=== PATIENT | female | born 1985 | race Caucasian/White ===

== ENCOUNTER 2022-04-20 09:58 | Outpatient (CLI) | payer OTHER, SELFPAY ==
[2022-04-20 10:17] LABS: Hematocrit 40.8 % (33.0-51.0); Hemoglobin* 13.8 gm/dL (12.0-16.0); Mean Corpuscular HGB Conc 34 gm/dL (32-36); Mean Corpuscular Hemoglobin 31 pg (26-34); Mean Corpuscular Volume 91 fL (80-100); Platelet Count* 251 K/uL (140-440); Red Blood Count 4.47 m/uL (4.00-5.20)
[2022-04-20 10:20] LABS: Slide Review Reflex No
[2022-04-20 13:33] LABS: TSH With Reflex to FT4* 0.989 uIU/mL (0.270-4.200)
[2022-04-20 13:38] LABS: Ferritin* 24.1 ng/mL (6.24-137.0)
[2022-04-20 13:52] LABS: Vitamin B12* 355 pg/mL (243-894)
== END 2022-04-20 09:59 | disposition home or self-care (01) ==
PROVIDERS: PCP Physician Assistant Medical; Visit Provider Physician Assistant Medical
DX: R20.0 Anesthesia of skin (principal); R20.2 Paresthesia of skin
CPT/HCPCS: 82607; 82728; 84443; 85027

== ENCOUNTER 2022-08-29 15:08 | Emergency (ER) | payer OTHER, SELFPAY ==
[2022-08-29 15:14] VITALS: BP 149/91; PULSE 88; RESP 22; TEMP 35.8; O2SAT 100; BMI 26.3
--- NOTE | 2022-08-29 15:40 | CRLHL7_ITS ---
For Patients: As a result of the Century Cures Act, medical imaging exams and procedure reports are released immediately into your electronic medical record. You may view this report before your referring provider. If you have questions, please contact your health care provider. INDICATION: Left flank pain COMPARISON: October 23, 2013 TECHNIQUE: CT examination of the abdomen and pelvis was performed without intravenous contrast. Thin section axial images were obtained from the lung bases through the pubic symphysis. Oral contrast was not administered. Please note that all CT scans at this facility use dose modulation, iterative reconstruction, and/or weight-based dosing when appropriate to reduce radiation dose to as low as reasonably achievable. FINDINGS: LUNG BASES: The lung bases as visualized appear normal.The heart size is normal at the lung bases. LIVER/BILIARY SYSTEM:The liver is normal in size and configuration given the lack of intravenous contrast. There is no visible focal mass and there is no intra- or extra hepatic biliary ductal dilatation.The gall bladder appears normal. ADRENALS: Normal non-contrast appearance KIDNEYS, URETERS and BLADDER:Vague renal papillary hyperdensities probably related to medullary sponge kidney. Intrarenal calculi bilaterally. Left hydronephrosis and left hydroureter which is due to a 5.5 millimeter calculus in the distal left ureter 6 centimeters from the left ureterovesical junction. SPLEEN:Normal non-contrast appearance. PANCREAS: Normal non-contrast appearance. RETROPERITONEUM and MESENTERY: There is no mass, adenopathy or aortic aneurysm. GASTROINTESTINAL SYSTEM: There is no evidence of diverticulitis, colitis, mechanical obstruction, or appendicitis. The small bowel as visualized appears normal. PELVIS: No mass, adenopathy or free fluid. OSSEOUS STRUCTURES and ABDOMINAL WALL: There is an age-appropriate appearance of the osseous structures.No significant abdominal wall defect. OTHER: No free fluid or free air. IMPRESSION: Left-sided obstructive uropathy due to a 5.5 millimeter calcified calculus in the distal left ureter about 6 centimeters from the left ureterovesical junction. Intrarenal calculi bilaterally. Findings of medullary sponge kidney. Please note that all CT scans at this facility use dose modulation, iterative reconstruction, and/or weight-based dosing when appropriate to reduce radiation dose to as low as reasonably achievable. Dictated by Bear Early MD @ 08/29/2022 4:43:07 PM (Electronically Signed)
--- NOTE | 2022-08-29 15:41 | ED.GENADULT ---
HPI - General Adult General Chief complaint: Flank Pain Stated complaint: Abdominal and Lower Back Pain Time Seen by Provider: 08/29/22 15:10 History of Present Illness HPI narrative: This 36-year-old female comes in with left flank and abdominal pain over the past day or so. She states that she has a history of kidney stone and feels like this is another occurrence. She does not report any nausea or vomiting. She is more and more uncomfortable over time and is trying to get into a position that is more comfortable. She does not report any dysuria or fevers. She is otherwise in good health. Related Data Home Medications Medication Instructions Recorded Confirmed cephalexin 250 mg capsule 250 mg PO Q12H PRN 02/07/22 08/29/22 norgestimate-ethinyl estradiol 1 tab PO QDAY 02/07/22 08/29/22 0.18 mg/0.215mg/0.25mg-35 mcg(28)tablet Previous Rx's Medication Instructions Recorded hydrocodone 5 mg-acetaminophen 325 1 tab PO Q4-6H PRN pain #20 tabs 08/29/22 mg tablet ketorolac 10 mg tablet 10 mg PO Q8H 5 days #15 tabs 08/29/22 ondansetron HCl 4 mg tablet 4 mg PO Q6H #20 tabs 08/29/22 Allergies Allergy/AdvReac Type Severity Reaction Status Date / Time No Known Allergies Allergy Unknown Verified 08/10/22 09:53 Review of Systems Status of ROS: Reports: 10 or more systems reviewed and unremarkable except as noted in History and below Narrative: Constitutional: No fevers, no weight gain or loss. Eyes: No discharge. No vision changes. HENT: No congestion, no sore throat, no ear pain. Cardiovascular: No chest pain, no palpitations. Respiratory: No shortness of breath, no wheezes, no cough. Gastrointestinal: No vomiting, no diarrhea. Left-sided abdominal pain radiating into the back. Genitourinary: No dysuria, no hematuria. Musculoskeletal: Normal range of motion. Skin: No rashes, no pruritis. Neurological: No dizziness, weakness, sensory change, speech change. Endo/Heme/Allergies: No bruising or bleeding. No polydipsia. Pysch: no suicidality, no anxiety, no insomnia. All other systems reviewed and are negative. PFSH PFSH Social History Smoking Status: Never smoker Do you use any of these nicotine containing products: None Second hand tobacco smoke exposure: No How often do you have a drink containing alcohol: 2-3 times a week How many standard drinks containing alcohol do you have on a typical day: 1 or 2 AUDIT-C Alcohol total score: 3 Non-prescribed substance use: denies use Exam Narrative: Exam Narrative: Constitutional: Well-developed, well-nourished. She is in significant distress. HEENT: Normocephalic, atraumatic. Neck: Normal range of motion. Nontender. Supple. Heart: Regular. No murmurs. Normal rate. Intact distal pulses. Lungs: Clear to auscultation. No chest discomfort. No wheezes, rhonchi, or rales. Abdomen: Normal bowel sounds. Diffuse pain in the left abdomen radiating into the left back. No rebound tenderness. Genitalia: Deferred. Back: No midline tenderness. Normal range of motion. Extremities: Normal range of motion. No injury. Skin: Intact. No rash. Warm. No erythema or pallor. Neurologic: No altered sensation. No weakness. Alert and oriented. Psychiatric: No suicidality. No anxiety or depression. No insomnia. Nursing notes and vitals signs are reviewed. Const: Vital Signs, click to edit/add: Vital Signs - 24 hr 08/29/22 15:14 Temperature 96.5 F L Pulse Rate [Pulse Oximeter] 88 Respiratory Rate 22 Blood Pressure [Ri ght Upper Arm] 149/91 H Pulse Oximetry 100 Course Vital Signs Vital signs: Initial Vital Signs Temperature 96.5 F L 08/29/22 15:14 Temperature Source Temporal Artery Scan 08/29/22 15:14 Pulse Rate 88 08/29/22 15:14 Pulse Rhythm 08/29/22 15:14 Respiratory Rate 22 08/29/22 15:14 Blood Pressure 149/91 H 08/29/22 15:14 Blood Pressure Mean 110 08/29/22 15:14 Blood Pressure Position Sitting 08/29/22 15:14 Pulse Oximetry 100 08/29/22 15:14 Vital Signs Temperature 96.5 F L 08/29/22 15:14 Pulse Rate 88 08/29/22 15:14 Respiratory Rate 22 08/29/22 15:14 Blood Pressure 149/91 H 08/29/22 15:14 Pulse Oximetry 100 08/29/22 15:14 Temperature 96.5 F L 08/29/22 15:14 Pulse Rate 88 08/29/22 15:14 Respiratory Rate 22 08/29/22 15:14 Blood Pressure 149/91 H 08/29/22 15:14 Pulse Oximetry 100 08/29/22 15:14 Medical Decision Making MDM Narrative Medical decision making narrative: This patient comes in with severe left-sided abdominal pain and has a history of kidney stones. An IV was established where she received doses of Toradol 30 mg, Dilaudid 0.5 mg, and Zofran 4 mg. This brought great relief to her symptoms. CT imaging of the abdomen and pelvis does show evidence of a 5.5 mm stone in the distal ureter about 6 cm from the bladder. These results are communicated with the patient and current knowledge regarding management of stones was also relayed to her. Her urinalysis shows no sign of infection. She is able to return home and received prescriptions for Toradol, [place], and Zofran. I did describe options for ongoing management of her symptoms are not improving or worsening. Lab Data Labs: Lab Results 08/29/22 Range/Units 15:40 Urine Color Yellow (Yellow) Urine Appearance Clear (Clear) Urine pH 8.5 (5.0-8.5) Ur Specific [place] 1.020 (1.000-1.030) Urine Protein 1+ A (Negative) Urine Glucose (UA) Negative (Negative) Urine Ketones 1+ A (Negative) Urine Blood 3+ A (Negative) Urine Nitrite Negative (Negative) Urine Bilirubin Negative (Negative) Urine Urobilinogen 0.2 (0.2-1.0) Ur Leukocyte Esterase Trace A (Negative) Urine RBC >100 A (0-2) Urine WBC 10-25 A (0-5) Ur Squamous Epith Cells Moderate A (None-Few) Amorphous Sediment Many A (None) Urine Bacteria Moderate A (None) Imaging Data CT scan - abdomen: Radiologist's impression: Left-sided obstructive uropathy due to a 5.5 millimeter calcified calculus in the distal left ureter about 6 centimeters from the left ureterovesical junction. Intrarenal calculi bilaterally. Findings of medullary sponge kidney. Discharge Plan Discharge Clinical Impression: Calculus, ureteral Patient Disposition: Home w/ Parent or Adult Condition: Improved Additional Instructions: Take medication as needed and indicated. Follow up with MD or return if worsening symptoms occur. Prescriptions: New hydrocodone-acetaminophen 5-325 mg tablet 1 tab PO Q4-6H PRN (Reason: pain) Qty: 20 0RF ondansetron HCl 4 mg tablet 4 mg PO Q6H Qty: 20 0RF ketorolac 10 mg tablet 10 mg PO Q8H 5 Days Qty: 15 0RF No Action norgestimate-ethinyl estradiol 0.18/0.215/0.25 mg-35 mcg (28) tablet 1 tab PO QDAY cephalexin 250 mg capsule 250 mg PO Q12H PRN Follow Up/Referrals: Terri Pinzon PA-C [Primary Care Provider] - Stand Alone [facility]: [facility] Info Instructions
[2022-08-29] MEDS: ONDANSETRON 2 MG/ML inj 4 MG IVP (15:48)
[2022-08-29] MEDS: HYDROmorphone 0.5 mg/0.5 ml inj IVP (15:48)
[2022-08-29] MEDS: KETOROLAC 30 MG/ML inj IVP (15:48)
[2022-08-29 17:08] LABS: Appearance Urine Clear (Clear); Bilirubin Urine Negative (Negative); Blood Urine 3+ (Negative); Color Urine Yellow (Yellow); Glucose Urine Negative (Negative); Ketones Urine 1+ (Negative); Leukocyte Esterase Urine Trace (Negative); Nitrite Urine Negative (Negative); Protein Urine 1+ (Negative); Urobilinogen Urine 0.2 (0.2-1.0); pH Urine 8.5 (5.0-8.5)
[2022-08-29 17:27] LABS: Amorphous Sediment Urine Many; Bacteria Urine Moderate; RBC Urine >100 (0-2); Squamous Epithelial Cell Urine Moderate (None-Few)
[2022-08-29 17:46] VITALS: BP 128/73; PULSE 75
== END 2022-08-29 17:49 | disposition home or self-care (01) ==
PROVIDERS: Emergency Provider Emergency Medicine Emergency Medical Services; PCP Physician Assistant Medical
DX: N20.1 Calculus of ureter (principal)
CPT/HCPCS: 74176; 81001; 87086; 96374; 96375; 99284; J1170; J1885; J2405

== ENCOUNTER 2024-08-12 05:38 | Emergency (ER) | payer OTHER, SELFPAY ==
--- OUTSIDE RECORDS SUMMARY | 2024-08-12 05:42 | XMS_ITS | Referral Summary ---
Author Organization [facility] Address [address] [place] [address] Care Team Providers Care Medical Art Therapist Name Role Phone No Ref-Primary, Physician Primary Care Provider Allergies No known active allergies Medications Sulfamethoxazol e-Trimethoprim (BACTRIM PO) Take 1 tablet by mouth as needed Active HYDROcodone-sarah taminophen (NORCO) 5-325 MG tablet Take 1 tablet by mouth every 4 hours as needed for severe pain (7-10) Active ondansetron (ZOFRAN) 4 MG tablet Take 4 mg by mouth every 6 hours as needed for nausea Active ketorolac (TORADOL) 10 MG tablet Take 10 mg by mouth every 8 hours as needed for moderate pain (4-6) Active norgestim-eth estrad triphasic (ORTHO TRI-CYCLEN) 0.18/0.215/0.25 MG-35 MCG tablet Take 1 tablet by mouth daily Active Pediatric Multiple Vitamins (FLINTSTONES MULTIVITAMIN) CHEW Take 1 chew tab by mouth daily Active Social History Tobacco Use Types Packs/Day Years Used Date Smoking Tobacco: Never Smokeless Tobacco: Never Alcohol Use Standard Drinks/Week Comments Yes 0 (1 standard drink = 0.6 oz pur e alcohol) Adolescent Education Answer Date Record ed Getting School Help Needed Not on file 05/03 Comments No Sex and Gender Information Value Date Recorded Sex Assigned at Not on file Legal Sex Female 10:02 AM CDT Gender Identity Not on file Sexual Orientation Not on file Last Filed Vital Signs Vital Sign Reading Time Taken Comments Blood Pressure 112/80 09/03/2022 11:30 AM [employer] Pulse 104 09/03/2022 11:30 AM [employer] Temperature 37.3 C (99.2 F) 09/03/2022 11:30 AM [employer] Respiratory Rate 18 09/03/2022 11:30 AM [employer] Oxygen Saturation 98% 09/03/2022 11:30 AM [employer] Inhaled Oxygen Concentration - - Weight 71.8 kg (158 lb 4.8 oz) 08/31/2022 1:33 PM [employer] Height 163.8 cm (5' 4.5) 06/04/2014 1:03 PM CDT Body Mass Index 26.75 06/04/2014 1:03 PM CDT Plan of Treatment Not on file Medical Devices Implanted Type Area Mohs Surgeon Device Identifier Shelf Expiration Date Model / Serial / Lot Stent Ureteral Polaris Ultra [id number] - [id number] Implanted:Qty: 1 on 08/31/2022 by Blil Vance MD at [facility] Stent Left: Ureter [employer] 04/26/2025 [id number] / / [id number] Explanted Type Area Mohs Surgeon Device Identifier Shelf Expiration Date Model / Serial / Lot Stent Ureteral Polaris Ultra [id number] - [id number] Explanted:Qty: 1 on 08/31/2022 by Bill Vance MD at [facility] Stent Left: Ureter [employer] 02/18/2025 [id number] / / [id number] Procedures Procedure Name Priority Date/Time Associated Diagnosis Comments BASIC METABOLIC PANEL Routine 09/03/2022 6:40 AM [employer] from Last 3 Months or Most Recently Relevant to Health Maintenance Results * (ABNORMAL) Basic metabolic panel (09/03/2022 6:40 AM [employer] LEADER) Sodium 141 136 - 145 mmol/L 09/03/2022 7:37 AM [facility] Potassium 4.1 3.4 - 5.3 mmol/L 09/03/2022 7:37 AM [employer] [facility] Chloride 109(H) 98 - 107 mmol/L 09/03/2022 7:37 AM [facility] Carbon Dioxide (CO2) 23 22 - 29 mmol/L 09/03/2022 7:37 AM [employer] [facility] Anion Gap 9 7 - 15 mmol/L 09/03/2022 7:37 AM [facility] Urea Nitrogen 5.3(L) 6.0 - 20.0 mg/dL 09/03/2022 7:37 AM [facility] Creatinine 0.61 0.51 - 0.95 mg/dL 09/03/2022 7:37 AM [facility] [facility] [facility] Calcium 8.1(L) 8.6 - 10.0 mg/dL 09/03/2022 7:37 AM [facility] Glucose 84 70 - 99 mg/dL 09/03/2022 7:37 AM [employer] [facility] GFR Estimate >90 >60 mL/min/1.7 3m2 09/03/2022 7:37 AM [facility] Comment:Effective July 132020 eGFRcr in adults is calculated using the 2020 CKD-EPI creatinine equation which includes age and gender (Ita et al., NEJM, DOI: 10.1056/NDJUzz7836607) Blood STRUCTURE OF RIGHT UPPER LIMB / Unknown Venipuncture / Unknown 09/03/2022 6:40 AM [employer] 09/03/2022 7:00 AM [employer] LE[employer]ER Gonzales Osman DO LAB - BLOOD ORDERABLES Zamzam azul Result LABORATORY [facility] [address] Lab (1st floor, no room number) [place] [address], [facility] [phone] from Last 3 Months or Most Recently Relevant to Health Maintenance Advance Directives For more information, please contact: [phone] * Full Code (Latest Code Status on File) Date Activated Date Inactivated Comments 09/02/2022 6:04 AM 09/03/2022 3:12 PM All basic an d advanced life-sustaining interventions are performed as appropriate Question Answer Comments Code status determined by: Discussion with farzanehe nt/ legal decision maker Care Teams Medical Art Therapist Relationship Specialty Start Date End Date No Ref-Primary, Physician PCP - General 09/02/22
--- OUTSIDE RECORDS SUMMARY | 2024-08-12 05:42 | XMS_ITS | Clinical Summary ---
Author Organization [employer] [facility] Address [place], [place] [address] Care Team Providers Care Operating Room Surgical Technician Name Role Phone [facility] Unavailable Unavailable Clinic, No Pcp Or Primary Care Provider Unavaila ble Allergies No known active allergies Medications cephalexin 250 mg capsuleIndication s:Recurrent UTI Take 1 Capsule (250 mg) by mouth one time if needed (Post intercourse to prevent UTI.). 40 Capsule 3 07/31/20 24 Active norgestimate-ethi nyl estradioL (ORTHO TRI-CYCLEN) 0.18/0.215/0.25 mg-35 mcg (28) tabletIndications :Encounter for surveillance of contraceptive pills Take 1 Tablet by mouth once daily. 84 Tablet 3 07/31/20 24 Active MULTIVIT WITH CALCIUM,IRON,MIN (WOMEN'S DAILY MULTIVITAMIN ORAL) Take 1 tablet by mouth once daily. 024 Discontin ued(*Danii ent states no longer taking) cephalexin (KEFLEX) 250 mg capsuleIndication s:Recurrent UTI Take 1 Capsule (250 mg) by mouth one time if needed (Post intercourse to prevent UTI.) for up to 1 dose. 40 Capsule 08/30/19 24 024 Discontin ued(Reord er (E-cancel not sent)) norgestimate-ethi nyl estradioL (ORTHO TRI-CYCLEN) 0.18/0.215/0.25 mg-35 mcg (28) tabletIndications :Encounter for surveillance of contraceptive pills TAKE 1 TABLET BY MOUTH EVERY DAY 84 Tablet 05/19/20 24 024 Discontin ued(Reord er (E-cancel not sent)) Active Problems Problem Noted Date Diagnosed Date Other hyperlipidemia 05/01/2024 Skin lesion of face 05/01/2024 Change in mole 05/01/2024 Dizziness 09/25/2012 Pre-syncope 09/25/2012 Irregular periods 09/25/2012 Orthostatic hypotension/intolerance 09/25/2012 Overview (10/23/2012): Had tilt table test 10/2012 after demonstrated orthostatic hypotension in office. No significant drop in pressure or elevation in HR with tilt table but did demonstrate orthostatic intolerance. Have recommended exercise/weight training, liberal sodium intake, warm rather than hot showers. Could also start Florinef in the future if these measures do not improve symptoms. Also could complete a blood volume study in the future if symptoms persist. Urinary tract infection, site not specified 11/10 Overview (04/09/2011): History of frequent urinary tract infection, with Negative workup. Bactrim post intercourse by urology recommendation ~ Mar 2011: ciprofloxacin. Pyelonephritis, unspecified 03/18/2006 Resolved Problems Problem Noted Date Diagnosed Date Resolved Date Influenza with other respira tory manifestations 03/18/2006 11/29/2007 SORE THROAT 06/27/2005 11/29/2007 CYSTITIS - ACUTE 06/27/2005 Encounters Date Type Department Care Team Description 07/31/2024 8:20 AM CUSTOMS AND BORDER PROTECTION OFFICER Office Visit [facility] [address] [facility] [place] [address] Fatmata Wagoner NP Physical (Non fasting ); Immunization/Injecti on 07/31/2024 Travel 07/06/2024 11:05 AM CUSTOMS AND BORDER PROTECTION OFFICER Telemedicine [facility] [address] [place] [phone] Bear Rivera MD Sinus Problem 07/06/2024 Travel 05/17/2024 Refill [facility] [address] [place] [address] Fatmata Wagoner NP Refill Request (Norgestimate-ethiny l Estradiol) from Last 3 Months Immunizations Name Administration Dates Next Due COVID-19 vaccine (WapiBio NTech 30mcg/0.3mL) PF, MDV 09/11/2020 Hepatitis A (Adult) 04/26/2008 Hepatitis B (Adult) 06/03/2008,04/26/2008 Hepatitis B (Peds) 03/23/2004,03/21/2001 INFLUENZA, IIV3 PF (AGE >= 6 MO) 07/31/2024 Influenza, IIV4 06/14/2023,,05/27/2020, 019,05/23/2018 MMR 04/02/2000 Td (Age >=7 Years) 04/02/2000 Tdap 06/10/2020,05/09/2018,04/26/2008 Varicella Vaccine 04/26/2008 Family History Medical History Relation Name Comments Hyperlipidemia Father Leukemia Maternal Grandfather 90s Diabetes Maternal Grandmother Meniere's disease Mother Heart attack Paternal Grandfather Young A ge Pulmonary embolism Paternal Grandmother Relation Name Status Comments Father Alive Half-Brother Alive Maternal Grandfather Maternal Grandmother Mother Alive Other 1 Other 2 Paternal Grandfather Paternal Grandmother Sister Alive Social History Tobacco Use Types Packs/Day Years Used Date Smoking Tobacco: Never Passive Smoke Exposure: Never Smokeless Tobacco: Never Tobacco Cessation:Counseling Given: Not Answered Alcohol Use Standard Drinks/Week Comments Yes 4 (1 standard drink = 0.6 oz pur e alcohol) every other weekend [facility] Utilities Answer Date Recorded Do you have trouble paying f or utilities (for example, heat, electricity, water, phone)? Yes 05/01/2024 PHQ-2 Answer Date Recorded PHQ-2 TOTAL SCORE 0 07/31/2024 Social Connections Answer Date Recorded Do you often feel lonely or isolated from those around you? 0 05/01/2024 Financial Resource Strain Answer Date R ecorded Difficulty of Paying Living Expenses 3 05/01/2024 Difficulty of Paying Living Expenses Not on file 05/01/2024 Food Insecurity Answer Date Recorded Do you worry your food will run out before you are able to buy more? 1 05/01/2024 Transportation Needs Answer Date Record ed Does lack of transportation keep you from medica l appointments? 1 05/01/2024 Does lack of transportation keep you from work, meetings or getting things that you need? 1 05/01/2024 Housing Stability Answer Date Recorded What is your housing situation today? 1 05/01/2024 Comments No Sex and Gender Information Value Date Recorded Sex Assigned at Not on file Legal Sex Female 5:26 AM CUSTOMS AND BORDER PROTECTION OFFICER Gender Identity Not on file Sexual Orientation Not on file Obstetrics History Last Filed Vital Signs Vital Sign Reading Time Taken Comments Blood Pressure 104/70 07/31/2024 8:24 AM CUSTOMS AND BORDER PROTECTION OFFICER Pulse 76 07/31/2024 8:24 AM CUSTOMS AND BORDER PROTECTION OFFICER Temperature 36.8 C (98.3 F) 12/13/2023 4:15 PM CDT Respiratory Rate 16 12/13/2023 4:15 PM CDT Oxygen Saturation 99% 12/13/2023 4:15 PM CDT Inhaled Oxygen Concentration - - Weight 75.3 kg (166 lb) 07/31/2024 8:24 AM CUSTOMS AND BORDER PROTECTION OFFICER Height 163.8 cm (5' 4.5) 07/31/2024 8:24 AM CUSTOMS AND BORDER PROTECTION OFFICER Body Mass Index 28.05 07/31/2024 8:24 AM CUSTOMS AND BORDER PROTECTION OFFICER Plan of Treatment Health Maintenance Due Date Last Done Comments COVID-19 vaccine series ( season) 2024 08/31/2021, 10/02/2020, 09/11/2020 BMI (ht and wt on same day) for age 18+ 07/31/2025 07/31/2024, 05/01/2024, 06/14/2023, Additional history exists Depression screening for age 12+ 07/31/2025 07/31/2024, 06/14/2023 Pap test for age 21-65 10/06/2025 , 10/06/2020, 05/10/2017, Additional history exists Tetanus booster 06/10/2030 06/10/2020, 04/13, 04/26/2008, Additional history exists HIV for age 15-65 Completed 12/16/2009 Tdap Completed 06/10/2020, 04/13, 04/26/2008 Hepatitis C screening for age 18-79 Completed 07/31/2024 Influenza for age 9-49 Completed , 06/14/2023, 05/31/2021, Additional history exists Pneumococcal series for age 6-49 Aged Out No longer eligible based on patient's age to complete this topic Procedures Procedure Name Priority Date/Time Associated Diagnosis Comments TSH WITH REFLEX Routine 07/31/2024 8:58 AM CUSTOMS AND BORDER PROTECTION OFFICER Thyroid disorder screen LIPID PANEL W REFLEX MEASURED LDL Routine 07/31/2024 8:58 AM CUSTOMS AND BORDER PROTECTION OFFICER Lipid screening HEMOGLOBIN A1C Routine 07/31/2024 8:58 AM CUSTOMS AND BORDER PROTECTION OFFICER Diabetes mellitus screening ANTI HCV Routine 07/31/2024 8:58 AM CUSTOMS AND BORDER PROTECTION OFFICER Encounter for hepatitis C screening test for low risk patient OVERNIGHT STOCKER THIN PREP PAP SCREEN IMAGED Routine 10/06/2020 2:00 PM CUSTOMS AND BORDER PROTECTION OFFICER ANTI HIV 1/2 Routine 12/16/2009 1:47 PM CDT Screen for STD (sexually transmitted disease) from Last 3 Months or Most Recently Relevant to Health Maintenance Results * HEMOGLOBIN A1C (07/31/2024 8:58 AM CUSTOMS AND BORDER PROTECTION OFFICER) HEMOGLOBIN A1C 5.1 <5.7 % of total Hgb [facility] Comment: For the purpose of screening for the presence of diabetes: <5.7% Consistent with the absence of diabetes 5.7-6.4% Consistent with increased risk for diabetes (prediabetes) > or =6.5% Consistent with diabetes This assay result is consistent with a decreased risk of diabetes. Currently, no consensus exists regarding use of hemoglobin A1c for diagnosis of diabetes in children. According to [place] Diabetes Association (ADA) guidelines, hemoglobin A1c <7.0% represents optimal control in non- diabetic patients. Different metrics may apply to specific patient populations. Standards of Medical Care in Diabetes(ADA). Blood BLOOD SPECIMEN / Unknown 07/31/2024 8:58 AM CUSTOMS AND BORDER PROTECTION OFFICER 07/31/2024 8:59 AM CUSTOMS AND BORDER PROTECTION OFFICER us Fatmata Wagoner NP CHEMISTRY Final Res ult [facility] [address] [place] [address], [facility] [address] [place] [phone] * TSH WITH REFLEX (07/31/2024 8:58 AM CUSTOMS AND BORDER PROTECTION OFFICER) TSH W/REFLEX TO FT4 1.21 mIU/L [facility] Comment: Reference Range > or = 20 Years 0.40-4.50 Ranges First trimester 0.26-2.66 Second trimester 0.55-2.73 Third trimester 0.43-2.91 Blood BLOOD SPECIMEN / Unknown 07/31/2024 8:58 AM CUSTOMS AND BORDER PROTECTION OFFICER 07/31/2024 8:59 AM CUSTOMS AND BORDER PROTECTION OFFICER us Fatmata Wagoner GRADUATE TEACHING ASSISTANT CHEMISTRY Final Res ult [employer] [address] [phone], [facility] [employer] [facility] [address] [place] [phone] * (ABNORMAL) LIPID PANEL W REFLEX MEASURED LDL (07/31/2024 8:58 AM CUSTOMS AND BORDER PROTECTION OFFICER) CHOLESTEROL, TOTAL 218(H) <200 mg/dL [facility] HDL CHOLESTEROL 77 > OR = 50 mg/dL [facility] TRIGLYCERIDES 115 <150 mg/dL [facility] LDL-CHOLESTEROL 118(H) mg/dL (calc) [facility] Comment: Reference range: <100 Desirable range <100 mg/dL for primary prevention; <70 mg/dL for patients with CHD or diabetic patients with > or = 2 CHD risk factors. LDL-C is now calculated using the Arnulfo calculation, which is a validated novel method providing better accuracy than the Friedewald equation in the estimation of LDL-C. Benji DANG et al. REECE. 2013;310(19): 5585-2114 (http://education.[employer]/faq/FPH742) CHOL/HDLC RATIO 2.8 <5.0 (calc) [employer] [facility] NON HDL CHOLESTEROL 141(H) <130 mg/dL (calc) [facility] Comment: For patients with diabetes plus 1 major ASCVD risk factor, treating to a non-HDL-C goal of <100 mg/dL (LDL-C of <70 mg/dL) is considered a therapeutic option. Blood BLOOD SPECIMEN / Unknown 07/31/2024 8:58 AM CUSTOMS AND BORDER PROTECTION OFFICER 07/31/2024 8:59 AM CUSTOMS AND BORDER PROTECTION OFFICER us Fatmata Wagoner GRADUATE TEACHING ASSISTANT CHEMISTRY Final Res ult Performing Organization Address [facility]/ZIP Co de Phone Number [employer] [address] [phone], [address] [phone] * ANTI HCV (07/31/2024 8:58 AM CUSTOMS AND BORDER PROTECTION OFFICER) HEPATITIS C ANTIBODY NON-REACTI VE NON-REACT DONNA [facility] Comment: HCV antibody was non-reactive. There is no laboratory evidence of HCV infection. In most cases, no further action is required. However, if recent HCV exposure is suspected, a test for HCV RNA (test code 95306) is suggested. For additional information please refer to http://education.[employer]/faq/JVS76t5 (This link is being provided for informational/ educational purposes only.) Blood BLOOD SPECIMEN / Unknown 07/31/2024 8:58 AM CUSTOMS AND BORDER PROTECTION OFFICER 07/31/2024 8:59 AM CUSTOMS AND BORDER PROTECTION OFFICER us Fatmata Wagoner GRADUATE TEACHING ASSISTANT SEND OUTS Final Res ult [facility] [address] [place] [phone], [employer] [place] [address] * OVERNIGHT STOCKER THIN PREP PAP SCREEN IMAGED (10/06/2020 2:00 PM CUSTOMS AND BORDER PROTECTION OFFICER) Case Report Gynecologic Cytology Report Case: [id number] Authorizing Provider: Neema Sewell Collected: 10/06/2020 1400 MMD Ordering Location: [facility] Received: 10/07/2020 1815 First Screen: Andres Anna Specimen: OVERNIGHT STOCKER ThinPrep Vial Screening, Cervical/Vaginal 10/17/2020 10:[address] [facility] INTERPRETATION/ RESULT NEGATIVE FOR INTRAEPITHELIAL LESION OR MALIGNANCY (NIL) (none) 10/17/2020 10:00 AM CUSTOMS AND BORDER PROTECTION OFFICER [facility] My Digital Shield [facility] IMEN ADEQUACY Satisfactory for evaluation Endocervical component present 10/17/2020 10:00 AM [facility] My Digital Shield [facility] HPV REQUEST HPV and PAP 10/17/2020 10:00 AM [facility] My Digital Shield [facility] Last Pap Date 05/10/2017 10/17/2020 10:00 AM CUSTOMS AND BORDER PROTECTION OFFICER [facility] My Digital Shield [facility] Last Pap Result NIL 10:00 AM [facility] My Digital Shield [facility] Menstrual Status 10/17/2020 10:00 AM [facility] Additional Information 10/17/2020 10:00 AM [facility] My Digital Shield [facility] Comment: Interpreted at [facility] - [address], [place] [address] Automated Review Successful 10/17/2020 10:00 AM [facility] My Digital Shield [facility] Comment:Specimen processed s uccessfully by automated commodity broker device, ThinPrep Imaging System, [employer] ANCILLARY TESTING OVERNIGHT STOCKER HPV Ordered, Please see separate report 10/17/2020 10:00 AM [facility] Note The pap test is a screening technique, not a diagnostic procedure. It is used primarily to screen for squamous cancers and precursor lesions. Published studies have shown that it is subject to both false negative and false positive results. The pap test should not be used as the sole means to diagnose or exclude pre-malignant and malignant lesions. 10/17/2020 10:00 AM CUSTOMS AND BORDER PROTECTION OFFICER [facility] ENTRAL LABORATORY Other (Cervical/Vagina l) 10/06/2020 2:00 PM CUSTOMS AND BORDER PROTECTION OFFICER 10/07/2020 6:17 PM CUSTOMS AND BORDER PROTECTION OFFICER us Neema Sewell MD PATHOLOGY/CYTOLOGY Final Result [facility] [address] [place] [address], [place] * ANTI HIV 1/2 (12/16/2009 1:47 PM CDT) ANTI HIV 1/2 Non-reacti ve [facility] Blood specimen (specimen) BLOOD SPECIMEN / Unknown 12/16/2009 1:47 PM CDT 12/16/2009 1:46 PM CDT us Eduarda Cantu MD SEND OUTS Final Result [facility] [place]NAL ZIP [id number] [address] from Last 3 Months or Most Recently Relevant to Health Maintenance Insurance [facility] [employer] [facility] Care Teams Operating Room Surgical Technician Relationship Specialty Start Date End Date Clinic, No Pcp Or . PCP - General 12/13/23 [place], [facility] 11/01/22
--- OUTSIDE RECORDS SUMMARY | 2024-08-12 05:42 | XMS_ITS | Clinical Summary ---
Author Organization [facility] Address [address] [place] [address] Care Team Providers Care Defense Attorney Name Role Phone No Ref-Primary, Physician Primary [...] 1 chew tab by mouth daily Active Family History Medical History Relation Comments Hypertension Father Cancer Maternal Grandfather leukemia Diabetes Maternal Grandmother Heart Disease Paternal Grandfather Blood Disease Paternal Grandmother blood clot Relation Status Comments Father Alive Maternal Grandfather Alive Maternal Grandmother Alive Mother Alive Paternal Grandfather Paternal Grandmother Social History Tobacco Use Types Packs/Day Years [...] Comments Blood Pressure 112/80 09/03/2022 11:30 AM DISPATCHER SERVICE CHIEF Pulse 104 09/03/2022 11:30 AM DISPATCHER SERVICE CHIEF Temperature 37.3 C (99.2 F) 09/03/2022 11:30 AM DISPATCHER SERVICE CHIEF Respiratory Rate 18 09/03/2022 11:30 AM DISPATCHER SERVICE CHIEF Oxygen Saturation 98% 09/03/2022 11:30 AM DISPATCHER SERVICE CHIEF Inhaled Oxygen Concentration - - Weight 71.8 kg (158 lb 4.8 oz) 08/31/2022 1:33 P M DISPATCHER SERVICE CHIEF Height 163.8 cm (5' 4.5) 06/04/2014 1:03 PM CDT Body Mass Index 26.75 06/04/2014 1:03 PM CDT Plan of Treatment Health Maintenance Due Date Last Done Comments ADVANCE CARE PLANNING 1987 ANNUAL REVIEW OF HM ORDERS 1987 YEARLY PREVENTIVE VISIT 12/23/1990 HIV SCREENING 12/23/2002 HEPATITIS C SCREENING 12/23/2005 PAP 05/10/2020 05/10/2017 PHQ-2 (once per calendar year) 2023 COVID-19 Vaccine ( season) 2024 08/31/2021, 10/02/2020, 09/11/2020 INFLUENZA VACCINE (#1) 2024 , 05/27/2020, 06/19/2019, Additional history exists GLUCOSE 09/03/2025 09/03/2022, 08/13, 08/31/2022, Additional history exists DTAP/TDAP/TD IMMUNIZATION (5 - Td or Tdap) 06/10/2030 06/10/2020, 05/09/2018, 04/26/2008, Additional history exists RSV VACCINE (1 - 1-dose 75+ series) 12/23/2062 HEPATITIS B IMMUNIZATION Completed 008, 04/26/2008, 03/23/2004, Additional history exists HPV IMMUNIZATION Aged Out No longer e ligible based on patient's age to complete this topic MENINGITIS IMMUNIZATION Aged Out No l onger eligible based on patient's age to complete this topic Pneumococcal Vaccine: Pediatrics (0 to 5 Years) and At-Risk Patients (6 to 49 Years) Aged Out No longer eligible based on patient's age to complete this topic RSV MONOCLONAL ANTIBODY Aged Out No l onger eligible based on patient's age to complete this topic Medical Devices Implanted Type Area International Trade Teacher Device Identifier Shelf Expiration Date Model / Serial / Lot Stent Ureteral Polaris Ultra [id number] - [id number] Implanted:Qty: 1 on 08/31/2022 by Bill Vance MD at [facility] Stent Left: Ureter [employer] 04/26/2025 [id number] / / [id number] Explanted Type Area International Trade Teacher Device Identifier Shelf Expiration Date Model / Serial / Lot Stent Ureteral Polaris Ultra [id number] - [id number] Explanted:Qty: 1 on 08/31/2022 by Bill Vance MD at [facility] Stent Left: Ureter [employer] 02/18/2025 [id number] / / [id number] Procedures Procedure Name Priority Date/Time Associated Diagnosis Comments BASIC METABOLIC PANEL Routine 09/03/2022 6:40 AM DISPATCHER SERVICE CHIEF from Last 3 Months or Most Recently Relevant to Health Maintenance Results * (ABNORMAL) Basic metabolic panel (09/03/2022 6:40 AM DISPATCHER SERVICE CHIEF) Sodium 141 136 - 145 mmol/L 09/03/2022 7:37 AM [facility] Potassium 4.1 3.4 - 5.3 mmol/L 09/03/2022 7:37 AM [facility] Chloride 109(H) 98 - 107 mmol/L 09/03/2022 7:37 AM DISPATCHER SERVICE CHIEF LABORATORY Carbon Dioxide (CO2) 23 22 - 29 mmol/L 09/03/2022 7:37 AM [facility] Anion Gap 9 7 - 15 mmol/L 09/03/2022 7:37 AM DISPATCHER SERVICE CHIEF LABORATORY Urea Nitrogen 5.3(L) 6.0 - 20.0 mg/dL 09/03/2022 7:37 AM [facility] Creatinine 0.61 0.51 - 0.95 mg/dL 09/03/2022 7:37 AM [facility] SERVICE CHIEF LABORATORY Calcium 8.1(L) 8.6 - 10.0 mg/dL 09/03/2022 7:37 AM [facility] SERVICE CHIEF LABORATORY Glucose 84 70 - 99 mg/dL 09/03/2022 7:37 AM [facility]IE[facility] LABORATORY GFR Estimate >90 >60 mL/min/1.7 3m2 09/03/2022 7:37 AM DISPATCHER SERVICE CHIEF LABORATORY Comment:Effective July 132020 eGFRcr in adults is calculated using the 2020 CKD-EPI creatinine equation which includes age and gender (Ita et al., NEJM, DOI: 10.1056/KHUGhq3772049) Blood STRUCTURE OF RIGHT UPPER LIMB / Unknown Venipuncture / Unknown 09/03/2022 6:40 AM DISPATCHER SERVICE CHIEF 09/03/2022 7:00 AM DISPATCHER SERVICE CHIEF Gonzales Osman DO LAB - BLOOD ORDERABLES Zamzam azul Result LABORATORY [facility] [address] Lab (1st floor, no room number) [place] [address], [facility] [phone] from Last 3 Months or Most Recently Relevant to Health Maintenance Advance Directives For more information, please contact: [phone] * Full Code (Latest Code Status on File) Date Activated Date Inactivated Comments 09/02/2022 6:04 AM 09/03/2022 3:12 PM All basic an d advanced life-sustaining interventions are performed as appropriate Question Answer Comments Code status determined by: Discussion with eros nt/ legal decision maker Care Teams Defense Attorney Relationship Specialty Start Date End Date No Ref-Primary, Physician PCP - General 09/02/22
[2024-08-12 05:43] VITALS: BP 125/78; PULSE 89; RESP 18; TEMP 36.6; O2SAT 99; BMI 28.5
[2024-08-12 05:55] LABS: Appearance Urine Clear (Clear); Bilirubin Urine Negative (Negative); Blood Urine 3+ (Negative); Color Urine Yellow (Yellow); Glucose Urine Negative (Negative); Ketones Urine Negative (Negative); Leukocyte Esterase Urine Negative (Negative); Nitrite Urine Negative (Negative); Protein Urine Negative (Negative); Specific Gravity Urine >= 1.030 (1.000-1.030); Urobilinogen Urine 0.2 (0.2-1.0)
--- NOTE | 2024-08-12 05:55 | CRLHL7_ITS ---
For Patients: As a result of the Century Cures Act, medical imaging exams and procedure reports are released immediately into your electronic medical record. You may view this report before your referring provider. If you have questions, please contact your health care provider. Indication: Right lower quadrant abdominal pain. History of kidney stones. Technique: CT of the abdomen and pelvis was performed without contrast. Comparison: 08/29/2022. Findings: Visualized lung bases: Clear. Liver: Unremarkable for unenhanced technique. Normal gallbladder. No biliary ductal dilation. Pancreas: Unremarkable for unenhanced technique. Spleen: Unremarkable for unenhanced technique. Adrenals: Unremarkable for unenhanced technique. Kidneys: There is a new 3 mm calculus in the region of the right distal ureter/ureterovesical junction medial to a pelvic phleboliths seen on series 2, image 127. No hydronephrosis. No left renal calculi Aorta/IVC: Normal in caliber. Lymph nodes: No lymphadenopathy. Bowel: Nonobstructed bowel. Appendix is not definitively visualized. No inflammatory changes identified at the cecal pole to suggest acute appendicitis. No intraperitoneal free air or fluid. Pelvis: Decompressed bladder. Bones/body wall: Unremarkable for age. Impression: Right ureterovesical junction calculus measuring 3 mm. No hydronephrosis. Please note that all CT scans at this facility use dose modulation, iterative reconstruction, and/or weight-based dosing when appropriate to reduce radiation dose to as low as reasonably achievable. Dictated by Karen Olsen MD @ 08/12/2024 7:00:55 AM (Electronically Signed)
--- NOTE | 2024-08-12 06:03 | ED_ITS ---
HPI - General Adult General Date Seen: 09/16/24 Chief complaint: Abdominal Pain Stated complaint: lower right abdominal pain Time Seen by Provider: 08/12/24 05:43 History of Present Illness HPI narrative: Patient is a 38-year-old woman presents for evaluation of right lower abdominal pain that started this morning at around 5:00 a.m.. She comes in at 6:00 a.m.. She is feeling better now than she was at home. Pain was fairly severe at that time associated with nausea. She is worried about a possible kidney infection although she also has a history of kidney stones. She has not had fevers or chills, no vomiting or diarrhea. She had some urgency yesterday but has not had dysuria or hematuria. She has history of , denies other abdominal surgeries. Denies other medical history. She is currently having her period, although she says it has been much field service analyst than usual. She does not think she is probably , but she can not be sure. Declines the need for anything for pain or nausea at this time. Related Data Previous Rx's ?Medication ?Instructions ?Recorded norgestimate-ethinyl estradiol 1 tab PO QDAY #84 tabs 11/15/22 0.18 mg/0.215mg/0.25mg-35 mcg(28)tablet albuterol sulfate 90 mcg/actuation 2 puff inhalation Q4-6H PRN 03/27/23 aerosol inhaler (Ventolin HFA) shortness of breath or wheezing #8.5 grams Allergies Allergy/AdvReac Type Severity Reaction Status Date / Time No Known Allergies Allergy Unknown Verified 08/12/24 05:49 Review of Systems Status of ROS: Reports: 10 or more systems reviewed and unremarkable except as noted in History and below [facility] Medical History Sinusitis ?J32.9 - Chronic sinusitis, unspecified (ICD-10) Right otitis media ?H66.91 - Otitis media, unspecified, right ear (ICD-10) Surgical History No significant past surgical history Social History Smoking Status: Never smoker Do you use any of these nicotine containing products: None Second hand tobacco smoke exposure: No How often do you have a drink containing alcohol: 2-3 times a week How many standard drinks containing alcohol do you have on a typical day: 1 or 2 AUDIT-C Alcohol total score: 3 Non-prescribed substance use: denies use Exam Narrative: Exam Narrative: Vital signs reviewed In general, alert, nontoxic woman. She looks comfortable. Head: Normocephalic, atraumatic. Eyes: Sclera clear. Pupils equal and reactive. ENT: Mucous membranes moist. Neck: Supple without adenopathy. Heart: Regular rate and rhythm without murmur. Lungs: Clear. No increased work of breathing, crackles or wheezes. Abdomen: Soft, minimal tenderness palpation without rebound guarding or rigidity. No significant tenderness at McBurney's point, negative Puckett's. Back: No CVA tenderness Extremities: Well perfused, pulses intact. No significant edema. Neurologic: Alert, conversant. Speech fluent, face symmetric. Moves all extremities equally. Skin: Warm, dry well perfused. Affect: Normal. Const: Vital Signs, click to edit/add: Vital Signs - 24 hr 08/12/24 05:43 Temperature 97.9 F Pulse Rate [Right Pulse Oximeter] 89 Respiratory Rate 18 Blood Pressure [Ri ght Upper Arm] 125/78 Pulse Oximetry 99 Oxygen Delivery Me thod Room Air Course Course ED Course: Old records reviewed. On her last CT scan she did have a stone in the right kidney. I think it is worthwhile to do a CT scan to make sure she does not have a ureteral stone. Based on history and physical exam, her presentation is more consistent with kidney stone than with appendicitis, ovarian torsion, ectopic , cholecystitis, pyelonephritis or other acute intra-abdominal process. She continued to feel well knee emergency department. Labs are notable for normal white blood cell count of 5.5, normal diff, normal metabolic panel, creatinine of 0.6. CRP normal at 0.6. Urinalysis shows greater than 100 red blood cells, 5-10 white cells few squames and few bacteria. test negative. By my review, CT scan shows a small distal ureteral calculus without significant hydronephrosis. Final radiology read is of a 3 mm stone without hydronephrosis. No other acute findings. Linked below. Findings reviewed with patient. Overall, I do not find the UA very impressive, I am not highly suspicious of infection, but she says she would like to take antibiotics as she feels like she always gets worse when she has any kind of kidney problem. Therefore, prescribed Keflex from [employer]. I also gave her oxycodone, 8 tablets if needed for more severe pain. For now, she can take ibuprofen, strain urine, reasons to return reviewed including fevers, chills, vomiting, severe uncontrolled pain despite treatment. Reviewed that this stone is small and should pass on its own but if it does not do so in the next week or two follow- up with Urology. Vital Signs Vital signs: Initial Vital Signs Temperature 97.9 F 08/12/24 05:43 Temperature Source Temporal Artery Scan 08/12/24 05:43 Pulse Rate 89 08/12/24 05:43 Respiratory Rate 18 08/12/24 05:43 Blood Pressure 125/78 08/12/24 05:43 Blood Pressure Mean 93 08/12/24 05:43 Blood Pressure Position Sitting 08/12/24 05:43 Pulse Oximetry 99 08/12/24 05:43 Oxygen Delivery Method Room Air 08/12/24 05:43 Vital Signs Temperature 97.9 F 08/12/24 05:43 Pulse Rate 89 08/12/24 05:43 Respiratory Rate 18 08/12/24 05:43 Blood Pressure 125/78 08/12/24 05:43 Pulse Oximetry 99 08/12/24 05:43 Oxygen Delivery Method Room Air 08/12/24 05:43 Temperature 97.9 F 08/12/24 05:43 Pulse Rate 89 08/12/24 05:43 Respiratory Rate 18 08/12/24 05:43 Blood Pressure 125/78 08/12/24 05:43 Pulse Oximetry 99 08/12/24 05:43 Oxygen Delivery Method Room Air 08/12/24 05:43 Medical Decision Making Lab Data Labs: Lab Results 08/12/24 08/12/24 Range/Units 05:45 06:00 WBC 5.55 (4.50-11.00) K/uL RBC 4.80 (4.00-5.20) m/uL Hgb 14.5 (12.0-16.0) gm/dL Hct 43.7 (33.0-51.0) % MCV 91 (80-100) fL MCH 30 (26-34) pg MCHC 33 (32-36) gm/dL RDW Coeff of Jaydon 11.8 (11.5-15.5) % Plt Count 281 (140-440) K/uL Neut % (Auto) 53.6 (42.0-72.0) % Lymph % (Auto) 35.1 (20-44) % [place] % (Auto) 7.2 (0.0-11.0) % Eos % (Auto) 3.6 (0.0-7.0) % Baso % (Auto) 0.5 (0.0-3.0) % Neut # (Auto) 2.97 (1.7-7.0) K/uL Lymph # (Auto) 1.95 (0.90-2.90) K/uL [place] # (Auto) 0.40 (0.00-0.90) K/UL Eos # (Auto) 0.20 (0.00-0.50) K/uL Baso # (Auto) 0.03 (0.00-0.30) K/uL Abs Immat Gran (auto) 0.00 (0.00-0.30) K/uL Imm/Tot Granulo (auto) 0.0 % Sodium 140 (135-149) mmol/L Potassium 4.0 (3.6-5.1) mmol/L Chloride 108 (96-114) mmol/L Carbon Dioxide 25 (20-32) mmol/L Anion Gap 7 (7-15) mEq/L BUN 16 (5-24) mg/dL Creatinine 0.6 (0.5-1.5) mg/dL Estimated Creat Clear 111.93 Estimated GFR 119 ml/min Glucose 93 (60-115) mg/dL Calcium 8.9 (8.4-10.6) mg/dL C-Reactive Protein 0.6 (0.5-1.0) mg/dL Urine Color Yellow (Yellow) Urine Appearance Clear (Clear) Urine pH 6.0 (5.0-8.5) Ur Specific Ennice >= 1.030 (1.000-1.030) Urine Protein Negative (Negative) Urine Glucose (UA) Negative (Negative) Urine Ketones Negative (Negative) Urine Blood 3+ A (Negative) Urine Nitrite Negative (Negative) Urine Bilirubin Negative (Negative) Urine Urobilinogen 0.2 (0.2-1.0) Ur Leukocyte Esterase Negative (Negative) Urine RBC >100 A (0-2) Urine WBC 5-10 A (0-5) Ur Squamous Epith Cells Few (None-Few) Urine Bacteria Few A (None) Urine HCG, Qual Negative (Negative) Imaging Data CT scan - abdomen: Attestation: I have reviewed the pertinent imaging results. Radiologist's impression: Patient: Deisi Steel MR#: [id number] : 1985 Acct:[id number] Loc: ED Service Date: 08/12/[address]: Ordering Physician: Angelique Redman M.D. Date of Service: 08/12/24 Procedure(s): CT abdomen pelvis wo con Accession Number(s): [id number] cc: Angelique Redman M.D.; Terri PORRAS~ For Patients: As a result of the Cures Act, medical imaging exams and procedure reports are released immediately into your electronic medical record. You may view this report before your referring provider. If you have questions, please contact your health care provider. Indication: Right lower quadrant abdominal pain. History of kidney stones. Technique: CT of the abdomen and pelvis was performed without contrast. Comparison: 08/29/2022. Findings: Visualized lung bases: Clear. Liver: Unremarkable for unenhanced technique. Normal gallbladder. No biliary ductal dilation. Pancreas: Unremarkable for unenhanced technique. Spleen: Unremarkable for unenhanced technique. Adrenals: Unremarkable for unenhanced technique. Kidneys: There is a new 3 mm calculus in the region of the right distal ureter/ureterovesical junction medial to a pelvic phleboliths seen on series 2, image 127. No hydronephrosis. No left renal calculi Aorta/IVC: Normal in caliber. Lymph nodes: No lymphadenopathy. Bowel: Nonobstructed bowel. Appendix is not definitively visualized. No inflammatory changes identified at the cecal pole to suggest acute appendicitis. No intraperitoneal free air or fluid. Pelvis: Decompressed bladder. Bones/body wall: Unremarkable for age. Impression: Right ureterovesical junction calculus measuring 3 mm. No hydronephrosis. Please note that all CT scans at this facility use dose modulation, iterative reconstruction, and/or weight-based dosing when appropriate to reduce radiation dose to as low as reasonably achievable. Dictated by Karen Olsen MD @ 08/12/2024 7:00:55 AM Discharge Plan Discharge Clinical Impression: Calculus of distal right ureter Patient Disposition: Home, Self-Care Condition: Stable Instructions: How to Strain Your Urine (ED), Ureteral Stones (ED) Additional Instructions: I would recommend taking ibuprofen, 400 mg 3 times daily with food as your baseline pain control. Take the Keflex that was prescribed. Oxycodone if needed for severe pain. If you have severe uncontrolled pain despite treatment, develop new symptoms such as fevers, chills, vomiting return any time. Strain your urine, push fluids. This stone is small enough that it should pass without intervention, but if you have not passed the stone in a couple of weeks you should follow-up with urology. Prescriptions: No Action albuterol sulfate [Ventolin HFA] 90 mcg/actuation HFA aerosol inhaler 2 puff inhalation Q4-6H PRN (Reason: shortness of breath or wheezing) Qty: 8.5 0RF norgestimate-ethinyl estradiol 0.18/0.215/0.25 mg-35 mcg (28) tablet 1 tab PO QDAY Qty: 84 1RF Rx Instructions: Pt is due for her annual visit January 2023. All medications will be renewed at that time. No further refills available moving forward Follow Up/Referrals: Terri Pinzon PA-C [Primary Care Provider] - Stand Alone Forms: [employer] Info Instructions
[2024-08-12 06:06] LABS: Basophils Absolute Auto 0.03 K/uL (0.00-0.30); Basophils Percent Auto 0.5 % (0.0-3.0); Eosinophils Percent Auto 3.6 % (0.0-7.0); Hematocrit 43.7 % (33.0-51.0); Hemoglobin* 14.5 gm/dL (12.0-16.0); Lymphocytes Absolute Auto 1.95 K/uL (0.90-2.90); Lymphocytes Percent Auto 35.1 % (20-44); Mean Corpuscular HGB Conc 33 gm/dL (32-36); Mean Corpuscular Hemoglobin 30 pg (26-34); Mean Corpuscular Volume 91 fL (80-100); Monocytes Percent Auto 7.2 % (0.0-11.0); Neutrophils Absolute Auto 2.97 K/uL (1.7-7.0); Neutrophils Percent Auto 53.6 % (42.0-72.0); Platelet Count* 281 K/uL (140-440); RDW Coefficient of Variation % 11.8 % (11.5-15.5); White Blood Count* 5.55 K/uL (4.50-11.00)
[2024-08-12 06:16] LABS: Bacteria Urine Few; RBC Urine >100 (0-2); Squamous Epithelial Cell Urine Few (None-Few)
[2024-08-12 06:17] LABS: Slide Review Reflex No
[2024-08-12 06:17] LABS: Ur HCG Qualitative* Negative (Negative)
[2024-08-12 06:19] LABS: Chloride* 108 mmol/L (96-114); Sodium* 140 mmol/L (135-149)
[2024-08-12 06:22] LABS: Creatinine* 0.6 mg/dL (0.5-1.5); Est. Creatinine Clearance* 111.93; Estimated Glomerular Filt Rate 119 ml/min
[2024-08-12 06:23] LABS: Anion Gap 7 mEq/L (7-15); Blood Urea Nitrogen* 16 mg/dL (5-24); Calcium* 8.9 mg/dL (8.4-10.6); Carbon Dioxide* 25 mmol/L (20-32); Glucose* 93 mg/dL (60-115)
[2024-08-12 06:26] LABS: C Reactive Protein* 0.6 mg/dL (0.5-1.0)
--- OUTSIDE RECORDS SUMMARY | 2024-08-12 06:26 | XMS_ITS | Referral Summary ---
Author Organization [facility] Address [address] [place] [id number] Care Team Providers Care Marketing Manager Health Communications Name Role Phone No Ref-Primary, Physician Primary [...] Comments Blood Pressure 112/80 09/03/2022 11:30 AM USER EXPERIENCE MANAGER Pulse 104 09/03/2022 11:30 AM USER EXPERIENCE MANAGER Temperature 37.3 C (99.2 F) 09/03/2022 11:30 AM USER EXPERIENCE MANAGER Respiratory Rate 18 09/03/2022 11:30 AM USER EXPERIENCE MANAGER Oxygen Saturation 98% 09/03/2022 11:30 AM USER EXPERIENCE MANAGER Inhaled Oxygen Concentration - - Weight 71.8 kg (158 lb 4.8 oz) 08/31/2022 1:33 PM USER EXPERIENCE MANAGER Height 163.8 cm (5' 4.5) 06/04/2014 1:03 PM CDT Body Mass Index 26.75 06/04/2014 1:03 PM CDT Plan of Treatment Not on file Medical Devices Implanted Type Area Gear Cutting Machine Set Up Operator Device Identifier Shelf Expiration Date Model / Serial / Lot Stent Ureteral Polaris Ultra [id number] - [id number] Implanted:Qty: 1 on 08/31/2022 by Bill Vance MD at [facility] Stent Left: Ureter [employer] 04/26/2025 [id number] / / [id number] Explanted Type Area Gear Cutting Machine Set Up Operator Device Identifier Shelf Expiration Date Model / Serial / Lot Stent Ureteral Polaris Ultra [id number] - [id number] Explanted:Qty: 1 on 08/31/2022 by Bill Vance MD at [facility] Stent Left: Ureter [employer] 02/18/2025 [id number] / / [id number] Procedures Procedure Name Priority Date/Time Associated Diagnosis Comments BASIC METABOLIC PANEL Routine 09/03/2022 6:40 AM USER EXPERIENCE MANAGER from Last 3 Months or Most Recently Relevant to Health Maintenance Results * (ABNORMAL) Basic metabolic panel (09/03/2022 6:40 AM USER EXPERIENCE MANAGER) Sodium 141 136 - 145 mmol/L 09/03/2022 7:37 AM [facility] Potassium 4.1 3.4 - 5.3 mmol/L 09/03/2022 7:37 AM USER EXPERIENCE MANAGER LABORATORY Chloride 109(H) 98 - 107 mmol/L 09/03/2022 7:37 AM [facility] Carbon Dioxide (CO2) 23 22 - 29 mmol/L 09/03/2022 7:37 AM USER EXPERIENCE MANAGER [facility] Anion Gap 9 7 - 15 mmol/L 09/03/2022 7:37 AM [facility] Urea Nitrogen 5.3(L) 6.0 - 20.0 mg/dL 09/03/2022 7:37 AM [facility] Creatinine 0.61 0.51 - 0.95 mg/dL 09/03/2022 7:37 AM USER EXPERIENCE MANA[facility] Calcium 8.1(L) 8.6 - 10.0 mg/dL 09/03/2022 7:37 AM [facility] Glucose 84 70 - 99 mg/dL 09/03/2022 7:37 AM USER EXPERIENCE MANAGER [facility] GFR Estimate >90 >60 mL/min/1.7 3m2 09/03/2022 7:37 AM [facility] Comment:Effective July 132020 eGFRcr in adults is calculated using the 2020 CKD-EPI creatinine equation which includes age and gender (Ita et al., NEJM, DOI: 10.1056/FANGun7213132) Blood STRUCTURE OF RIGHT UPPER LIMB / Unknown Venipuncture / Unknown 09/03/2022 6:40 AM USER EXPERIENCE MANAGER 09/03/2022 7:00 AM USER EXPERIENCE MANAGER Gonzales Osman DO LAB - BLOOD ORDERABLES Zamzam azul Result LABORATORY [facility] [address] Lab (1st floor, no room number) [place] [address], [facility] [phone] from Last 3 Months or Most Recently Relevant to Health Maintenance Advance Directives For more information, please contact: [phone] * Full Code (Latest Code Status on File) Date Activated Date Inactivated Comments 09/02/2022 6:04 AM 09/03/2022 3:12 PM All basic an d advanced life-sustaining interventions are performed as appropriate Question Answer Comments Code status determined by: Discussion with farzanehe nt/ legal decision maker Care Teams Marketing Manager Health Communications Relationship Specialty Start Date End Date No Ref-Primary, Physician PCP - General 09/02/22
--- OUTSIDE RECORDS SUMMARY | 2024-08-12 06:26 | XMS_ITS | Clinical Summary ---
Author Organization [facility] Address [address] [place] [id number] Care Team Providers Care Cement Sack Breaker Name Role Phone No Ref-Primary, Physician Primary [...] Comments Blood Pressure 112/80 09/03/2022 11:30 AM TOP LIFT COMPRESSER Pulse 104 09/03/2022 11:30 AM TOP LIFT COMPRESSER Temperature 37.3 C (99.2 F) 09/03/2022 11:30 AM TOP LIFT COMPRESSER Respiratory Rate 18 09/03/2022 11:30 AM TOP LIFT COMPRESSER Oxygen Saturation 98% 09/03/2022 11:30 AM TOP LIFT COMPRESSER Inhaled Oxygen Concentration - - Weight 71.8 kg (158 lb 4.8 oz) 08/31/2022 1:33 P M TOP LIFT COMPRESSER Height 163.8 cm (5' 4.5) 06/04/2014 1:03 [...] this topic Medical Devices Implanted Type Area Paper Plate Machine Tender Device Identifier Shelf Expiration Date Model / Serial / Lot Stent Ureteral Polaris Ultra [id number] - [id number] Implanted:Qty: 1 on 08/31/2022 by Bill Vance MD at [facility] Stent Left: Ureter [employer] 04/26/2025 [id number] / / [id number] Explanted Type Area Paper Plate Machine Tender Device Identifier Shelf Expiration Date Model / Serial / Lot Stent Ureteral Polaris Ultra [id number] - [id number] Explanted:Qty: 1 on 08/31/2022 by Bill Vance MD at [facility] Stent Left: Ureter [employer] 02/18/2025 [id number] / / [id number] Procedures Procedure Name Priority Date/Time Associated Diagnosis Comments BASIC METABOLIC PANEL Routine 09/03/2022 6:40 AM TOP LIFT COMPRESSER from Last 3 Months or Most Recently Relevant to Health Maintenance Results * (ABNORMAL) Basic metabolic panel (09/03/2022 6:40 AM TOP LIFT COMPRESSER) Sodium 141 136 - 145 mmol/L 09/03/2022 7:37 AM [facility] Potassium 4.1 3.4 - 5.3 mmol/L 09/03/2022 7:37 AM [facility] Chloride 109(H) 98 - 107 mmol/L 09/03/2022 7:37 AM [facility] L[facility] COM[facility] Carbon Dioxide (CO2) 23 22 - 29 mmol/L 09/03/2022 7:37 AM [facility] Anion Gap 9 7 - 15 mmol/L 09/03/2022 7:37 AM [facility] L[facility] COM[facility] Urea Nitrogen 5.3(L) 6.0 - 20.0 mg/dL 09/03/2022 7:37 AM [facility] Creatinine 0.61 0.51 - 0.95 mg/dL 09/03/2022 7:37 AM [facility] Calcium 8.1(L) 8.6 - 10.0 mg/dL 09/03/2022 7:37 AM [facility] L[facility] COM[facility] Glucose 84 70 - 99 mg/dL 09/03/2022 7:37 AM [facility] L[facility] COM[facility] GFR Estimate >90 >60 mL/min/1.7 3m2 09/03/2022 7:37 AM [facility] L[facility] COM[facility] Comment:Effective July 132020 eGFRcr in adults is calculated using the 2020 CKD-EPI creatinine equation which includes age and gender (Ita et al., NEJM, DOI: 10.1056/GYLLpp1469262) Blood STRUCTURE OF RIGHT UPPER LIMB / Unknown Venipuncture / Unknown 09/03/2022 6:40 AM TOP LIFT COMPRESSER 09/03/2022 7:00 AM TOP LIFT COMPRESSER Gonzales Osman DO LAB - BLOOD ORDERABLES Zamzam azul Result LABORATORY [facility] Acute Care Lab [address] Lab (1st floor, no room number) [place] [address], [facility] [phone] from Last 3 Months or Most Recently Relevant to Health Maintenance Advance Directives For more information, please contact: [phone] * Full Code (Latest Code Status on File) Date Activated Date Inactivated Comments 09/02/2022 6:04 AM 09/03/2022 3:12 PM All basic an d advanced life-sustaining interventions are performed as appropriate Question Answer Comments Code status determined by: Discussion with eros nt/ legal decision maker Care Teams Cement Sack Breaker Relationship Specialty Start Date End Date No Ref-Primary, Physician PCP - General 09/02/22
--- OUTSIDE RECORDS SUMMARY | 2024-08-12 06:26 | XMS_ITS | Clinical Summary ---
Author Organization [facility] Address [place], [place] [address] Care Team Providers Care Buffing Wheel Inspector Name Role Phone [facility] Unavailable Unavailable Clinic, No Pcp [...] Department Care Team Description 07/31/2024 8:20 AM HYDRAULIC BULL RIVETER OPERATOR Office Visit [facility] [address] [facility] [place] [address] Fatmata Wagoner NP Physical (Non fasting ); Immunization/Injecti on 07/31/2024 Travel 07/06/2024 11:05 AM HYDRAULIC BULL RIVETER OPERATOR Telemedicine [facility] [address] [place] [phone] Bear Rivera MD Sinus Problem 07/06/2024 Travel 05/17/2024 Refill [facility] [address] [place] [address] Fatmata Wagoner NP Refill Request (Norgestimate-ethiny l Estradiol) from Last 3 Months Immunizations Name Administration Dates Next Due COVID-19 vaccine ([employer] 30mcg/0.3mL) PF, MDV 09/11/2020 Hepatitis A [...] oz pur e alcohol) every other weekend [facility] Utilities Answer Date Recorded Do you [...] on file Legal Sex Female 5:26 AM HYDRAULIC BULL RIVETER OPERATOR Gender Identity Not on file Sexual Orientation Not on file Obstetrics History Last Filed Vital Signs Vital Sign Reading Time Taken Comments Blood Pressure 104/70 07/31/2024 8:24 AM HYDRAULIC BULL RIVETER OPERATOR Pulse 76 07/31/2024 8:24 AM HYDRAULIC BULL RIVETER OPERATOR Temperature 36.8 C (98.3 F) 12/13/2023 4:15 PM CDT Respiratory Rate 16 12/13/2023 4:15 PM CDT Oxygen Saturation 99% 12/13/2023 4:15 PM CDT Inhaled Oxygen Concentration - - Weight 75.3 kg (166 lb) 07/31/2024 8:24 AM HYDRAULIC BULL RIVETER OPERATOR Height 163.8 cm (5' 4.5) 07/31/2024 8:24 AM HYDRAULIC BULL RIVETER OPERATOR Body Mass Index 28.05 07/31/2024 8:24 AM HYDRAULIC BULL RIVETER OPERATOR Plan of Treatment Health Maintenance Due Date [...] TSH WITH REFLEX Routine 07/31/2024 8:58 AM HYDRAULIC BULL RIVETER OPERATOR Thyroid disorder screen LIPID PANEL W REFLEX MEASURED LDL Routine 07/31/2024 8:58 AM HYDRAULIC BULL RIVETER OPERATOR Lipid screening HEMOGLOBIN A1C Routine 07/31/2024 8:58 AM HYDRAULIC BULL RIVETER OPERATOR Diabetes mellitus screening ANTI HCV Routine 07/31/2024 8:58 AM HYDRAULIC BULL RIVETER OPERATOR Encounter for hepatitis C screening test for low risk patient CARD MOUNTER THIN PREP PAP SCREEN IMAGED Routine 10/06/2020 2:00 PM HYDRAULIC BULL RIVETER OPERATOR ANTI HIV 1/2 Routine 12/16/2009 1:47 PM CDT Screen for STD (sexually transmitted disease) from Last 3 Months or Most Recently Relevant to Health Maintenance Results * HEMOGLOBIN A1C (07/31/2024 8:58 AM HYDRAULIC BULL RIVETER OPERATOR) HEMOGLOBIN A1C 5.1 <5.7 % of total Hgb [facility] Comment: For the purpose of screening for the presence of diabetes: <5.7% Consistent with the absence of diabetes 5.7-6.4% Consistent with increased risk for diabetes (prediabetes) > or =6.5% Consistent with diabetes This assay result is consistent with a decreased risk of diabetes. Currently, no consensus exists regarding use of hemoglobin A1c for diagnosis of diabetes in children. According to [place] Diabetes Association (ADA) guidelines, hemoglobin A1c <7.0% represents optimal control in non- diabetic patients. Different metrics may apply to specific patient populations. Standards of Medical Care in Diabetes(ADA). Blood BLOOD SPECIMEN / Unknown 07/31/2024 8:58 AM HYDRAULIC BULL RIVETER OPERATOR 07/31/2024 8:59 AM HYDRAULIC BULL RIVETER OPERATOR us Fatmata Wagoner NP CHEMISTRY Final Res ult [facility] [address] [place] [phone], [facility] [address] [place] [phone] * TSH WITH REFLEX (07/31/2024 8:58 AM HYDRAULIC BULL RIVETER OPERATOR) TSH W/REFLEX TO FT4 1.21 mIU/L [facility] Comment: Reference Range > or = 20 Years 0.40-4.50 Ranges First trimester 0.26-2.66 Second trimester 0.55-2.73 Third trimester 0.43-2.91 Blood BLOOD SPECIMEN / Unknown 07/31/2024 8:58 AM HYDRAULIC BULL RIVETER OPERATOR 07/31/2024 8:59 AM HYDRAULIC BULL RIVETER OPERATOR us Fatmata Wagoner REST ROOM MAID CHEMISTRY Final Res ult [employer] [address] [phone], [facility] [address] [place] [phone] * (ABNORMAL) LIPID PANEL W REFLEX MEASURED LDL (07/31/2024 8:58 AM HYDRAULIC BULL RIVETER OPERATOR) CHOLESTEROL, TOTAL 218(H) <200 mg/dL [facility] [...] LDL-C. Benji DANG et al. REECE. 2013;310(19): 4608-4356 (http://education.Authentic Response/faq/XVR023) CHOL/HDLC RATIO 2.8 <5.0 (calc) [facility] NON HDL CHOLESTEROL 141(H) <130 mg/dL (calc) [facility] Comment: For patients with diabetes plus 1 major ASCVD risk factor, treating to a non-HDL-C goal of <100 mg/dL (LDL-C of <70 mg/dL) is considered a therapeutic option. Blood BLOOD SPECIMEN / Unknown 07/31/2024 8:58 AM HYDRAULIC BULL RIVETER OPERATOR 07/31/2024 8:59 AM HYDRAULIC BULL RIVETER OPERATOR us Fatmata Wagoner REST ROOM MAID CHEMISTRY Final Res ult Performing Organization Address [facility]/ZIP Co de Phone Number [facility] [address] [phone], [employer] [phone] * ANTI HCV (07/31/2024 8:58 AM HYDRAULIC BULL RIVETER OPERATOR) HEPATITIS C ANTIBODY NON-REACTI VE NON-REACT DONNA [facility] Comment: HCV antibody was non-reactive. There is no laboratory evidence of HCV infection. In most cases, no further action is required. However, if recent HCV exposure is suspected, a test for HCV RNA (test code 26519) is suggested. For additional information please refer to http://education.BaseTrace/faq/RUK28z7 (This link is being provided for informational/ educational purposes only.) Blood BLOOD SPECIMEN / Unknown 07/31/2024 8:58 AM HYDRAULIC BULL RIVETER OPERATOR 07/31/2024 8:59 AM HYDRAULIC BULL RIVETER OPERATOR us Fatmata Wagoner REST ROOM MAID SEND OUTS Final Res ult [facility] [address] [place] [phone], [employer] [place] [phone] * CARD MOUNTER THIN PREP PAP SCREEN IMAGED (10/06/2020 2:00 PM HYDRAULIC BULL RIVETER OPERATOR) Case Report Gynecologic Cytology Report Case: [id number] Authorizing Provider: Neema Sewell Collected: 10/06/2020 1400 MMD Ordering Location: [facility] Received: 10/07/2020 1816 First Screen: Andres Anna Specimen: CARD MOUNTER ThinPrep Vial Screening, Cervical/Vaginal 10/17/2020 10:00 [facility] INTERPRETATION/ RESULT NEGATIVE FOR INTRAEPITHELIAL LESION OR MALIGNANCY (NIL) (none) 10/17/2020 10:00 AM HYDRAULIC BULL RIVETER OPERATOR [facility] [employer] [facility] IMEN ADEQUACY Satisfactory for evaluation Endocervical component present 10/17/2020 10:00 AM [facility] [employer] [facility] HPV REQUEST HPV and PAP 10/17/2020 10:00 AM [facility] [employer] [facility] Last Pap Date 05/10/2017 10/17/2020 10:00 AM HYDRAULIC BULL RIVETER OPERATOR [facility] [employer] [facility] Last Pap Result NIL 10:00 AM [facility] [employer] [facility] Menstrual Status 10/17/2020 10:00 AM [facility] Additional Information 10/17/2020 10:00 AM [facility] [employer] [facility] Comment: Interpreted at [facility] - [address] [address] Automated Review Successful 10/17/2020 10:00 AM [facility] [employer] [facility] Comment:Specimen processed s uccessfully by automated cloud security architect device, ThinPrep Imaging System, [employer] ANCILLARY TESTING CARD MOUNTER HPV Ordered, Please see separate report 10/17/2020 10:00 AM [facility] Note The pap test is [...] pre-malignant and malignant lesions. 10/17/2020 10:00 AM HYDRAULIC BULL RIVETER OPERATOR [facility]-C ENTRAL LABORATORY Other (Cervical/Vagina l) 10/06/2020 2:00 PM HYDRAULIC BULL RIVETER OPERATOR 10/07/2020 6:17 PM HYDRAULIC BULL RIVETER OPERATOR us Neema Sewell MD PATHOLOGY/CYTOLOGY Final Result [facility]AL LAB[facility] [address] [place] [address], [place] * ANTI HIV 1/2 (12/16/2009 1:47 PM CDT) ANTI HIV 1/2 Non-reacti ve [facility] Blood specimen (specimen) BLOOD SPECIMEN / Unknown 12/16/2009 1:47 PM CDT 12/16/2009 1:46 PM CDT us Eduarda Cantu MD SEND OUTS Final Result [facility] [place]NAL ZIP [address] [address] from Last 3 Months or Most Recently Relevant to Health Maintenance Insurance [facility] [employer] [facility] Care Teams Buffing Wheel Inspector Relationship Specialty Start Date End Date Clinic, No Pcp Or . PCP - General 12/13/23 [place], [facility] 11/01/22
== END 2024-08-12 07:21 | disposition home or self-care (01) ==
PROVIDERS: Emergency Provider Emergency Medicine; PCP Physician Assistant Medical
DX: N20.1 Calculus of ureter (principal)
CPT/HCPCS: 36415; 74176; 80048; 81001; 81025; 85025; 86140; 87086; 99283; 99284

== ENCOUNTER 2025-03-29 07:43 | Outpatient (CLI) | payer OTHER, SELFPAY | END 2025-03-29 07:44 | disposition home or self-care (01) | LOC: FRMREF 07:43 | PROVIDERS: Visit Provider Physician Assistant Medical | DX: N39.0 Urinary tract infection, site not specified (principal); B96.20 Unspecified Escherichia coli [E. coli] as the cause of diseases classified elsewhere | CPT/HCPCS: 87086 ==